=== PATIENT | female | born 1975 | race Hispanic/Latino ===

== ENCOUNTER 2017-03-14 00:53 | Emergency (ER) | payer OTHER ==
[2017-03-14 01:52] VITALS: TEMP 98.4; BMI 51.6
[2017-03-14] MEDS ORDERED: Albuterol-Ipratrop 3 mg / 0.5 (3 ml) UD IH STA ×2 (02:12→03:00)
--- NOTE | 2017-03-14 02:31 | ED PDOC ---
Arrival/HPI - General Chief Complaint: Shortness Of Breath Time Seen by Provider: 03/14/17 01:43 Historian: Patient - History of Present Illness Narrative History of Present Illness (Text): 03/14/17 02:27 Stacey Cordero is a 41 year old female, with a history of asthma, presents to the emergency department complaining of 2 day duration of coughing, shortness of breath and wheezing. States that symptoms are similar to pervious asthmatic episodes. Patient uses nebulizers at home, but is not on steroids. Denies any fever, chills, headache, dizziness, chest pain, nausea, vomiting, diarrhea, urinary symptoms, or any other complaints at this time. Time/Duration: Other (2 days ) Symptom Onset: Gradual Symptom Course: Worsening Severity Level: Mild Activities at Onset: Light Past Medical History - Provider Review Nursing Documentation Reviewed: Yes - Tetanus Immunization Tetanus Immunization: Unknown - Cardiac Hx Cardiac Disorders: No - Pulmonary Hx Respiratory Disorders: Yes Hx Asthma: Yes - Neurological Hx Neurological Disorder: No - HEENT Hx HEENT Disorder: No - Renal Hx Renal Disorder: No - Endocrine/Metabolic Hx Endocrine Disorders: Yes Other/Comment: Thyroid nodules - Hematological/Oncological Hx Blood Disorders: No - Integumentary Hx Dermatological Disorder: No - Musculoskeletal/Rheumatological Hx Musculoskeletal Disorders: No - Gastrointestinal Hx Gastrointestinal Disorders: No - Genitourinary/Gynecological Hx Genitourinary Disorders: No - Psychiatric Hx Psychophysiologic Disorder: No Hx Depression: No Hx Emotional Abuse: No Hx Physical Abuse: No Hx Substance Use: No - Surgical History Hx Cholecystectomy: Yes - Anesthesia Hx Anesthesia: No - Suicidal Assessment Feels Threatened In Home Enviroment: No Family/Social History - Physician Review Nursing Documentation Reviewed: Yes Family/Social History: No Known Family HX Smoking Status: Heavy Smoker > 10 Cigarettes Daily Hx Alcohol Use: Yes Frequency of alcohol use: Socially Hx Substance Use: No Hx Substance Use Treatment: No Allergies/Home Meds Allergies/Adverse Reactions: Allergies No Known Allergies Allergy (Verified 03/14/17 02:29) Home Medications: Home Meds Medication Instructions Recorded Confirmed Albuterol Sulfate [Albuterol Hfa] 0.09 mg 12/12/12 12/12/12 Albuterol Sulfate [Albuterol 3 ml IH 12/12/12 12/12/12 Sulfate 3 ml] Naproxen Sodium [Naproxen] 220 mg PO PRN 12/12/12 12/12/12 Review of Systems - Physician Review All systems were reviewed & negative as marked: Yes - Review of Systems Constitutional: Normal. absent: Fatigue, Fevers Respiratory: SOB, Cough, Wheezing. absent: Sputum Cardiovascular: Normal. absent: Chest Pain, Palpitations Gastrointestinal: Normal. absent: Abdominal Pain, Diarrhea, Nausea, Vomiting Genitourinary Female: Normal Musculoskeletal: Normal Neurological: Normal. absent: Headache, Dizziness Psychiatric: Normal Physical Exam Vital Signs Reviewed: Yes Vital Signs Temp Pulse Resp BP Pulse Ox 03/14/17 01:56 19 95 03/14/17 01:47 98.4 F 81 19 148/78 95 Temperature: Afebrile Blood Pressure: Normal Pulse: Regular Respiratory Rate: Normal Appearance: Positive for: Well-Appearing, Non-Toxic, Comfortable Pain Distress: None Mental Status: Positive for: Alert and Oriented X 3 - Systems Exam Head: Present: Atraumatic, Normocephalic Pupils: Present: PERRL Extroacular Muscles: Present: EOMI Conjunctiva: Present: Normal Ears: Present: Normal, NORMAL TM, Normal Canal. No: Erythema, TM Bulging Pharnyx: Present: Normal. No: ERYTHEMA, EXUDATE, TONSILS ENLARGED Neck: Present: Normal Range of Motion Respiratory/Chest: Present: Wheezes (bilateral expiratory wheezing ). No: Respiratory Distress, Accessory Muscle Use Cardiovascular: Present: Regular Rate and Rhythm, Normal S1, S2. No: Murmurs Abdomen: Present: Normal Bowel Sounds. No: Tenderness, Distention, Peritoneal Signs Upper Extremity: Present: Normal Inspection. No: Cyanosis, Edema Lower Extremity: Present: Normal Inspection. No: Edema Neurological: Present: GCS=15, CN II-XII Intact, Speech Normal Skin: Present: Warm, Dry, Normal Color. No: Rashes Psychiatric: Present: Alert, Oriented x 3, Normal Insight, Normal Concentration Medical Decision Making ED Course and Treatment: 03/14/17 02:31 Impression: A 41 year old female who presents to emergency department complaining of cough, shortness of breath, and wheezing for past 2 days. Differential Diagnosis include but are not limited to: Asthma vs bronchitis. Plan: -- Duoneb -- Reassess and disposition Progress Notes: 03/14/17 03:18 On reevaluation, patient states that her breathing has improved markedly post breathing treatments in the emergency department. Patient is requesting discharge. Will discharge patient home on prescription for Albuterol and prednisone. Advised to follow up with PMD within few days and present to emergency department for worsening symptoms. - Medication Orders Current Medication Orders: Discontinued Medications Albuterol/Ipratropium (Duoneb 3 Mg/0.5 Mg (3 Ml) Ud) 3 ml IH ONCE STA Stop: 03/14/17 02:13 Last Admin: 03/14/17 02:29 Dose: 3 ML Albuterol/Ipratropium (Duoneb 3 Mg/0.5 Mg (3 Ml) Ud) 3 ml IH ONCE STA Stop: 03/14/17 03:01 Methylprednisolone (Solu-Medrol) 125 mg IVP ONCE ONE Stop: 03/14/17 03:01 - Scribe Statement The provider has reviewed the documentation as recorded by the Lindsey Morse Provider Attestation: All medical record entries made by the Lindsey were at my direction and personally dictated by me. I have reviewed the chart and agree that the record accurately reflects my personal performance of the history, physical exam, medical decision making, and the department course for this patient. I have also personally directed, reviewed, and agree with the discharge instructions and disposition. Disposition/Present on Arrival - Present on Arrival Any Indicators Present on Arrival: No History of DVT/PE: No History of Uncontrolled Diabetes: No Urinary Catheter: No History of Decub. Ulcer: No History Surgical Site Infection Following: None - Disposition Have Diagnosis and Disposition been Completed?: Yes Diagnosis: Asthma exacerbation Disposition: HOME/ ROUTINE Disposition Time: 03:20 Patient Plan: Discharge Patient Problems: Current Active Problems Problem Status Diagnosed Asthma exacerbation Acute Condition: GOOD Discharge Instructions (ExitCare): Asthma (ED) Additional Instructions: Take meds as prescribed/follow up with your doctor this week Prescriptions: Albuterol HFA [Ventolin HFA 90 mcg/actuation (8 g)] 2 puff IH [id number] PRN #1 puff PRN Reason: Wheezing predniSONE [Prednisone] 40 mg PO DAILY #10 tab
[2017-03-14 03:52] VITALS: BP 143/78; PULSE 83; RESP 18; O2SAT 94
== END 2017-03-14 03:52 | disposition home or self-care (01) ==
LOC: ED 00:53
DX: J45.901 Unspecified asthma with (acute) exacerbation (principal); F17.210 Nicotine dependence, cigarettes, uncomplicated
CPT/HCPCS: 96374; 99284; J2930